=== PATIENT | female | born 1985 | race African-American/Black ===

== ENCOUNTER 2024-05-02 10:32 | Inpatient (IN) | payer OTHER, MEDICAID ==
[~2024-05-02] VITALS: Ht 177.8 cm; Wt 56.2 kg
[2024-05-02] MEDS: ONDANSETRON HCL 4MG/2ML INJ IV STA (13:12)
[2024-05-02] MEDS: SODIUM CHLORIDE 0.9% 1,000 ML IV ONE (13:12)
[2024-05-02 15:04] LABS: BASOPHILS % 0.4 % (0.0-2.0); EOSINOPHILS % 0.1 % (0.0-5.0); HEMATOCRIT. 35.5 % (36.0-48.0); HEMOGLOBIN. 11.2 g/dL (12.0-16.0); LYMPHOCYTES % 7.8 % (20.0-50.0); MEAN CORPUSCULAR HEMOGLOBIN 27.1 pg (28.0-32.0); MEAN CORPUSCULAR HGB CONC 31.5 g/dL (31.0-37.0); MEAN CORPUSCULAR VOLUME 85.9 fL (81.0-99.0); MEAN PLATELET VOLUME 8.6 fl (7.4-10.4); MONOCYTES % 13.8 % (2.0-8.0); NEUTROPHILS % 77.9 % (40.0-76.0); PLATELET 381 x1000/uL (130-400); RED BLOOD CELL COUNT 4.14 mill/uL (4.2-5.4); RED CELL DISTRIBUTION WIDTH 20.7 % (11.6-14.6); WHITE BLOOD COUNT 16.7 x1000/uL (4.5-11.0)
[2024-05-02 15:12] LABS: PROTHROMBIN TIME 11.2 sec (9.6-11.0)
[2024-05-02 15:24] LABS: CHLORIDE 103 mEq/L (98-107); POTASSIUM 3.7 mEq/L (3.5-5.1); SODIUM 136 mEq/L (136-145)
[2024-05-02 15:25] LABS: CARBON DIOXIDE 16 mEq/L (21-32)
[2024-05-02 15:26] LABS: CALCIUM 9.7 mg/dL (8.7-10.4)
[2024-05-02 15:31] LABS: CREATININE 1.1 mg/dL (0.6-1.0); GLUCOSE 88 mg/dL (70-105)
[2024-05-02 15:32] LABS: ALANINE AMINOTRANSFERASE 67 IU/L (10-49); ALBUMIN 4.9 g/dL (3.2-4.8); ASPARTATE AMINOTRANSFERASE 73 IU/L (<34); UREA NITROGEN BLOOD 17 mg/dL (9-23)
[2024-05-02 15:33] LABS: BILIRUBIN DIRECT 0.3 mg/dL (<=3.0)
[2024-05-02 15:34] LABS: BILIRUBIN TOTAL 0.9 mg/dL (0.1-1.0); PROTEIN TOTAL 8.5 g/dL (6.0-8.3)
[2024-05-02 15:54] LABS: HCG SCREEN NEGATIVE
[2024-05-02 15:56] LABS: TROPONIN I HIGH SENSITIVITY 38 ng/L (3.0-34)
[2024-05-02 16:42] LABS: TROPONIN I HIGH SENSITIVITY 39 ng/L (3.0-34)
[2024-05-02] MEDS: METOCLOPRAMIDE HCL 10MG/2ML VIAL IV ONE (18:15)
[2024-05-02] MEDS: CEFTRIAXONE 1GM/50ML 50 ML IV ONE (18:18)
[2024-05-02 19:56] LABS: CLARITY URINE CLOUDY (CLEAR); COLOR URINE YELLOW (YELLOW); GLUCOSE URINE NEGATIVE (NEGATIVE); KETONES URINE 4+ (NEGATIVE); LEUKOCYTE ESTERASE URINE NEGATIVE (NEGATIVE); NITRITE URINE NEGATIVE (NEGATIVE); OCCULT BLOOD URINE 3+ (NEGATIVE); PROTEIN URINE 3+ (NEGATIVE); SPECIFIC GRAVITY URINE 1.023 (1.005-1.030)
[2024-05-02 20:59] LABS: BACTERIA URINE 1+; SQUAMOUS EPITHELIAL CELL URINE 1+ /lpf (RARE/1+); TRICHOMONAS URINE 1+
[2024-05-03] VITALS: BP 150/92; PULSE 94; RESP 18; TEMP 36.8072
[2024-05-03] MEDS ORDERED: DOCUSATE SODIUM 100MG CAPSULE PO PRN (07:45)
[2024-05-03] MEDS ORDERED: ACETAMINOPHEN 325MG TABLET PO PRN ×2 (07:45)
[2024-05-03] MEDS ORDERED: IPRATROPIUM/ALBUTEROL 0.5-3(2.5)MG/3ML NEB HHN PRN (07:45)
[2024-05-03] MEDS ORDERED: CLONIDINE 0.1MG TABLET PO PRN (07:45)
[2024-05-03] MEDS ORDERED: GUAIFENESIN 200MG/10ML SUGAR FREE UDC PO PRN (07:45)
[2024-05-03] MEDS ORDERED: IPRATROPIUM/ALBUTEROL 0.5-3(2.5)MG/3ML NEB HHN SCH (07:45)
[2024-05-03 08:00] VITALS: BP 131/88; PULSE 75; RESP 18; TEMP 36.114; O2SAT 100
[2024-05-03] MEDS: SODIUM CHLORIDE 0.9% 1,000 ML IV SCH (08:31)
[2024-05-03] MEDS: PANTOPRAZOLE 40MG DR TABLET PO SCH (08:42)
[2024-05-03] MEDS ORDERED: KETOROLAC 15MG/ML VIAL IV PRN (10:00)
[2024-05-03] MEDS: AZITHROMYCIN 500MG/250ML 250 ML IV SCH (10:09)
[2024-05-03 12:00] VITALS: BP 130/79; PULSE 71; RESP 18; TEMP 36.114; O2SAT 100
[2024-05-03 12:16] LABS: IRON 204 ug/dL (50-170)
[2024-05-03 12:19] LABS: TOTAL IRON BINDING CAPACITY 315 ug/dl (250-425)
[2024-05-03] MEDS: CEFTRIAXONE 1GM/50ML 50 ML IV SCH (13:21)
[2024-05-03 16:00] VITALS: BP 135/85; PULSE 76; RESP 18; TEMP 36.44736; O2SAT 99
[2024-05-03 17:45] LABS: TROPONIN I HIGH SENSITIVITY 9 ng/L (3.0-34)
[2024-05-03 17:46] LABS: CREATINE KINASE 293 IU/L (34-145)
[2024-05-03 20:00] VITALS: BP 132/99; PULSE 73; RESP 18; TEMP 36.55848; O2SAT 100
[2024-05-04] VITALS: BP 138/108; PULSE 76; RESP 20; TEMP 36.61404; O2SAT 100
[2024-05-04 04:00] VITALS: BP 145/102; PULSE 68; RESP 18; TEMP 36.55848; O2SAT 100
[2024-05-04 06:26] LABS: CHLORIDE 104 mEq/L (98-107); SODIUM 137 mEq/L (136-145)
[2024-05-04 06:27] LABS: CALCIUM 9.6 mg/dL (8.7-10.4); CARBON DIOXIDE 22 mEq/L (21-32)
[2024-05-04 06:32] LABS: CREATININE 0.6 mg/dL (0.6-1.0); GLUCOSE 88 mg/dL (70-105); UREA NITROGEN BLOOD 10 mg/dL (9-23)
[2024-05-04 06:34] LABS: TROPONIN I HIGH SENSITIVITY 8 ng/L (3.0-34)
[2024-05-04 07:12] LABS: BASOPHILS % 0.6 % (0.0-2.0); EOSINOPHILS % 0.5 % (0.0-5.0); HEMATOCRIT. 34.7 % (36.0-48.0); HEMOGLOBIN. 10.9 g/dL (12.0-16.0); LYMPHOCYTES % 20.3 % (20.0-50.0); MEAN CORPUSCULAR HEMOGLOBIN 26.6 pg (28.0-32.0); MEAN CORPUSCULAR HGB CONC 31.5 g/dL (31.0-37.0); MEAN CORPUSCULAR VOLUME 84.7 fL (81.0-99.0); MEAN PLATELET VOLUME 8.7 fl (7.4-10.4); MONOCYTES % 10.7 % (2.0-8.0); NEUTROPHILS % 67.9 % (40.0-76.0); PLATELET 323 x1000/uL (130-400); RED BLOOD CELL COUNT 4.09 mill/uL (4.2-5.4); RED CELL DISTRIBUTION WIDTH 20.2 % (11.6-14.6); WHITE BLOOD COUNT 8.6 x1000/uL (4.5-11.0)
[2024-05-04 08:00] VITALS: BP 128/90; PULSE 77; RESP 18; TEMP 36.50292; O2SAT 99
[2024-05-04] MEDS ORDERED: KCL 20MEQ/100ML PREMIX 100 ML IV SCH (09:15)
[2024-05-04] MEDS: TAMSULOSIN HCL 0.4MG SR CAPSULE PO SCH (09:38)
[2024-05-04] MEDS: ONDANSETRON HCL 4MG/2ML INJ IV PRN (10:46)
[2024-05-04] MEDS: POTASSIUM CHLORIDE 40MEQ in DEXT 5% WATER 250ML IV NR (11:44)
[2024-05-04 12:00] VITALS: BP 138/92; PULSE 88; RESP 16; TEMP 36.3918; TEMP 36.39180; O2SAT 99
[2024-05-04] MEDS: METRONIDAZOLE 500MG TABLET PO NR (13:44)
[2024-05-04 14:05] LABS: *AMPHETAMINES SCREEN URINE NEGATIVE (NEGATIVE); *BARBITURATES SCREEN URINE NEGATIVE (NEGATIVE); *BENZODIAZEPINES SCREEN URINE NEGATIVE (NEGATIVE); *COCAINE SCREEN URINE NEGATIVE (NEGATIVE); CANNABINOID URINE SCREEN PRESUMPTIVE POSITIVE (NEGATIVE); ECSTASY MDMA SCREEN URINE NEGATIVE (NEGATIVE); METHADONE URINE SCREEN NEGATIVE (NEGATIVE); OPIATES URINE SCREEN NEGATIVE (NEGATIVE); PHENCYCLIDINE URINE SCREEN NEGATIVE (NEGATIVE)
[2024-05-04 19:05] VITALS: BP 138/92; PULSE 88; TEMP 97.5; O2SAT 99
== END 2024-05-04 21:30 | disposition home or self-care (01) | DRG 871 ==
LOC: ER 10:32 → EDBEDREQTM 17:12 → EDBEDREQ 17:12 → 7WST 23:26
PROVIDERS: ADMIT Hospitalist; ATTEND Hospitalist
DX: A41.9 Sepsis, unspecified organism (principal); I21.A1 Myocardial infarction type 2; K22.6 Gastro-esophageal laceration-hemorrhage syndrome; E87.1 Hypo-osmolality and hyponatremia; E87.20 Acidosis, unspecified; N39.0 Urinary tract infection, site not specified; D64.9 Anemia, unspecified; F19.90 Other psychoactive substance use, unspecified, uncomplicated; I11.9 Hypertensive heart disease without heart failure; K76.0 Fatty (change of) liver, not elsewhere classified; N20.0 Calculus of kidney; R63.6 Underweight; A59.9 Trichomoniasis, unspecified; E87.6 Hypokalemia; F17.210 Nicotine dependence, cigarettes, uncomplicated; J45.909 Unspecified asthma, uncomplicated; F10.10 Alcohol abuse, uncomplicated; Z87.442 Personal history of urinary calculi
CPT/HCPCS: 36415; 71250; 74176; 80048; 80076; 80305; 81003; 82550; 82607; 82746; 83540; 83550; 83605; 84145; 84484; 84703; 85025; 93005; 99291; J0456; J0696; J2405; J2765; J3480; J7030; J7060

== ENCOUNTER 2024-07-16 23:38 | Emergency (ER) | payer MEDICAID, OTHER ==
[~2024-07-16] VITALS: Ht 157.5 cm; Wt 60.3 kg
[2024-07-16 23:52] VITALS: O2SAT 99
[2024-07-16 23:54] VITALS: BP 133/91; PULSE 88; RESP 16; TEMP 36.7; O2SAT 99
== END 2024-07-17 00:59 | disposition left against medical advice (07) ==
LOC: ER 23:38
DX: H57.12 Ocular pain, left eye (principal); Z53.21 Procedure and treatment not carried out due to patient leaving prior to being seen by health care provider